=== PATIENT | female | born 1950 | race Caucasian/White ===

== ENCOUNTER 2020-04-24 07:00 | Outpatient (CLI) | payer MEDICARE, SELFPAY ==
[2020-04-24 07:12] LABS: Basophils Absolute Auto 0.02 K/mm3 (0.00-0.10); Basophils Percent Auto 0.2 % (0.0-1.0); Eosinophils Absolute Auto 0.31 K/mm3 (0.02-0.50); Eosinophils Percent Auto 3.8 % (1.0-6.0); Hematocrit 40.2 % (35.0-42.0); Hemoglobin 12.9 g/dL (11.7-13.8); Immature Granulocyte Absolute 0.03 K/mm3 (0.00-0.00); Immature Granulocyte Percent A 0.4 % (0.0-0.0); Lymphocytes Absolute Auto 1.68 K/mm3 (1.10-4.50); Lymphocytes Percent Auto 20.7 % (18.0-42.0); Mean Corpuscular HGB Conc 32.1 g/dL (32.0-36.0); Mean Corpuscular Hemoglobin 33.5 pg (27.0-31.0); Mean Corpuscular Volume 104.4 fL (78.0-102.0); Mean Platelet Volume 10.4 fl (9.2-11.8); Monocytes Absolute Auto 0.58 K/mm3 (0.10-0.90); Monocytes Percent Auto 7.2 % (2.0-11.0); Neutrophils Absolute Auto 5.5 K/mm3 (1.7-7.2); Neutrophils Percent Auto 67.7 % (50.0-70.0); Platelet Count Result 222 K/mm3 (150-420); Red Blood Count 3.85 M/mm3 (4.20-5.40); Red Cell Distribution Width 13.2 % (11.6-14.4); White Blood Count 8.1 K/mm3 (4.8-10.8)
[2020-04-24 07:49] LABS: Alanine Aminotransferase 36 U/L (14-59); Albumin Level 3.5 g/dL (3.4-5.0); Alkaline Phosphatase 78 U/L (46-116); Anion Gap 9 mmol/L (8-16); Aspartate Amino Transferase 21 U/L (15-37); Bilirubin,Total 0.4 mg/dL (0.00-1.00); Blood Urea Nitrogen 26 mg/dL (7-18); Calcium 9.3 mg/dL (8.5-10.1); Carbon Dioxide 26 mmol/L (21-32); Chloride 105 mmol/L (98-108); Cholesterol 233 mg/dL (0-200); Estimated Glomerular Filt Rate 46; Glucose 154 mg/dL (70-99); HDL Direct 46 mg/dL (40-60); LDL Cholesterol Calculated 150 mg/dL (<130); Osmolality Calculated 297 mOsm/kg (285-295); Potassium 4.7 mmol/L (3.5-5.1); Sodium 140 mmol/L (136-145); Total Protein 7.1 g/dL (6.4-8.2); Triglycerides 187 mg/dL (0-150)
[2020-04-27 15:37] LABS: Hemoglobin A1C 7.1 % (<5.7)
== END 2020-04-24 07:01 | disposition home or self-care (01) ==
LOC: CHSLAB 07:03
PROVIDERS: PCP Nurse Practitioner Family; Visit Provider Nurse Practitioner Family
DX: I10 Essential (primary) hypertension (principal); R73.09 Other abnormal glucose
CPT/HCPCS: 36415; 80053; 80061; 83036; 85025

== ENCOUNTER 2020-05-15 08:52 | Outpatient (CLI) | payer MEDICARE, SELFPAY ==
[2020-05-15 09:15] LABS: Creatinine Urine 125.73 mg/dL (40-278); MALB Creatinine Ratio 10.8 mg/g (0-30); Microalbumin Urine Random 13.7 mg/L
[2020-05-15 09:43] LABS: Hemoglobin A1C 6.9 % (<5.7)
[2020-05-15 13:26] LABS: Alanine Aminotransferase 49 U/L (14-59); Albumin Level 3.7 g/dL (3.4-5.0); Alkaline Phosphatase 76 U/L (46-116); Anion Gap 10 mmol/L (8-16); Aspartate Amino Transferase 24 U/L (15-37); Bilirubin,Total 0.4 mg/dL (0.00-1.00); Blood Urea Nitrogen 24 mg/dL (7-18); Calcium 9.4 mg/dL (8.5-10.1); Carbon Dioxide 26 mmol/L (21-32); Chloride 102 mmol/L (98-108); Estimated Glomerular Filt Rate 44; Glucose 95 mg/dL (70-99); Osmolality Calculated 290 mOsm/kg (285-295); Potassium 4.3 mmol/L (3.5-5.1); Sodium 138 mmol/L (136-145); Total Protein 7.1 g/dL (6.4-8.2)
== END 2020-05-15 08:53 | disposition home or self-care (01) ==
LOC: CHSLAB 08:55
PROVIDERS: PCP Nurse Practitioner Family; Visit Provider Nurse Practitioner Family
DX: N28.9 Disorder of kidney and ureter, unspecified (principal); E11.9 Type 2 diabetes mellitus without complications
CPT/HCPCS: 36415; 80053; 82043; 83036

== ENCOUNTER 2021-04-23 07:45 | Outpatient (CLI) | payer MEDICARE, SELFPAY ==
[2021-04-23 08:35] LABS: Creatinine Urine 148.48 mg/dL (40-278); MALB Creatinine Ratio 8.7 mg/g (0-30); Microalbumin Urine Random < 13.0 mg/L
[2021-04-23 08:44] LABS: Hemoglobin A1C 6.1 % (<5.7)
== END 2021-04-23 07:46 | disposition home or self-care (01) ==
LOC: CHSLAB 07:48
PROVIDERS: PCP Nurse Practitioner Family; Visit Provider Nurse Practitioner Family
DX: E11.9 Type 2 diabetes mellitus without complications (principal)
CPT/HCPCS: 36415; 82043; 83036

== ENCOUNTER 2022-06-08 09:54 | Outpatient (CLI) | payer MEDICARE, SELFPAY ==
[2022-06-08 10:09] LABS: Basophils Absolute Auto 0.04 K/mm3 (0.00-0.10); Basophils Percent Auto 0.6 % (0.0-1.0); Eosinophils Absolute Auto 0.26 K/mm3 (0.02-0.50); Eosinophils Percent Auto 3.7 % (1.0-6.0); Hematocrit 37.5 % (35.0-42.0); Hemoglobin 12.2 g/dL (11.7-13.8); Immature Granulocyte Absolute 0.02 K/mm3 (0.00-0.00); Immature Granulocyte Percent A 0.3 % (0.0-0.0); Lymphocytes Absolute Auto 1.54 K/mm3 (1.10-4.50); Lymphocytes Percent Auto 22.1 % (18.0-42.0); Mean Corpuscular HGB Conc 32.5 g/dL (32.0-36.0); Mean Corpuscular Hemoglobin 33.7 pg (27.0-31.0); Mean Corpuscular Volume 103.6 fL (78.0-102.0); Mean Platelet Volume 10.9 fl (9.2-11.8); Monocytes Absolute Auto 0.39 K/mm3 (0.10-0.90); Monocytes Percent Auto 5.6 % (2.0-11.0); Neutrophils Absolute Auto 4.7 K/mm3 (1.7-7.2); Neutrophils Percent Auto 67.7 % (50.0-70.0); Platelet Count Result 229 K/mm3 (150-420); Red Blood Count 3.62 M/mm3 (4.20-5.40); Red Cell Distribution Width 13.4 % (11.6-14.4)
[2022-06-08 10:27] LABS: Alanine Aminotransferase 21 U/L (14-59); Albumin Level 3.4 g/dL (3.4-5.0); Alkaline Phosphatase 69 U/L (46-116); Anion Gap 5 mmol/L (8-16); Aspartate Amino Transferase 12 U/L (15-37); Bilirubin,Total 0.5 mg/dL (0.00-1.00); Blood Urea Nitrogen 20 mg/dL (7-18); Calcium 8.6 mg/dL (8.5-10.1); Carbon Dioxide 32 mmol/L (21-32); Chloride 104 mmol/L (98-108); Cholesterol 136 mg/dL (0-200); Estimated Glomerular Filt Rate 49; Glucose 103 mg/dL (70-99); HDL Direct 55 mg/dL (40-60); LDL Cholesterol Calculated 60 mg/dL (<130); Osmolality Calculated 294 mOsm/kg (285-295); Potassium 3.7 mmol/L (3.5-5.1); Sodium 141 mmol/L (136-145); Total Protein 7.2 g/dL (6.4-8.2); Triglycerides 105 mg/dL (0-150)
[2022-06-08 10:30] LABS: Hemoglobin A1C 6.1 % (<5.7)
== END 2022-06-08 09:55 | disposition home or self-care (01) ==
PROVIDERS: PCP Nurse Practitioner Family; Visit Provider Nurse Practitioner Family
DX: E11.9 Type 2 diabetes mellitus without complications (principal); I10 Essential (primary) hypertension
CPT/HCPCS: 36415; 80053; 80061; 83036; 85025

== ENCOUNTER 2022-08-23 10:54 | Outpatient (CLI) | payer MEDICARE, SELFPAY | END 2022-08-23 10:55 | disposition home or self-care (01) | LOC: CHSLAB 10:58 | PROVIDERS: PCP Nurse Practitioner Family; Visit Provider Specialist | DX: L82.1 Other seborrheic keratosis (principal) | CPT/HCPCS: 88305 ==

== ENCOUNTER 2023-04-12 08:48 | Outpatient (CLI) | payer MEDICARE, SELFPAY ==
--- NOTE | ~2023-04-12 | MM_ITS ---
EXAMINATION: MM screening merari BI w payton HISTORY: Screening mammogram TECHNIQUE: Craniocaudal and mediolateral oblique 3-D tomosynthesis images were obtained and synthetic 2-D images were generated. CAD analysis was submitted and interpreted. COMPARISON: Baseline examination. No prior mammogram is available for comparison at this institution. BREAST PARENCHYMAL COMPOSITION: The breasts are almost entirely fatty. FINDINGS: There is no evidence of suspicious mass, calcification, or architectural distortion to sugg est malignancy in either breast. There has been no suspicious interval change. IMPRESSION: 1. No mammographic evidence of malignancy. 2. Recommend routine screening mammography in one year. BI-RADS Category 1: Negative Reviewed, dictated and finalized at location A.
== END 2023-04-12 08:49 | disposition home or self-care (01) ==
LOC: CHSIMG 08:51
PROVIDERS: PCP Nurse Practitioner Family; Visit Provider Nurse Practitioner Family
DX: Z12.31 Encounter for screening mammogram for malignant neoplasm of breast (principal)
CPT/HCPCS: 77063; 77067

== ENCOUNTER 2023-05-02 10:47 | Outpatient (CLI) | payer MEDICARE, SELFPAY ==
--- NOTE | ~2023-05-02 | DEXA_ITS ---
Bone Density Report Name: MARYANA CONTRERAS Age: 73 Sex: Female Ethnicity: White Date of : 1950 Indication: postmenopausal; screening for osteoporosis; height loss; Referring Provider: QUINTIN BATISTA Study: Bone densitometry was performed. Exam Date: May 02, 2023 Accession number: [id number] Bone Density: Region BMD T-score Z-score Classification AP Spine(L1, L2, L3) 1.214 1.8 4.0 Normal Femoral Neck (Left) 0.672 -1.6 0.3 Osteopenia Total Hip (Left) 0.875 -0.6 1.1 Normal Femoral Neck (Right) 0.694 -1.4 0.5 Osteopenia Total Hip (Right) 0.874 -0.6 1.1 Normal Femoral Neck Mean 0.683 -1.5 0.4 Osteopenia Total Hip Mean 0.874 -0.6 1.1 Normal World Health Organization criteria for BMD impression classify patients as: Normal (T-score at or above -1.0), Osteopenia (T-score between -1.0 and -2.5), or Osteoporosis (T-score at or below -2.5). 10-year Fracture Risk(1): Major Osteoporotic Fracture 9.1% Hip Fracture 1.4% Reported Risk Factors: [place] (), Neck BMD=0.672, BMI=42.6 (1) FRAX(R) Version 3.08. Fracture probability calculated for an untreated patient. Fracture probability may be lower if the patient has received treatment. Clinical Information Provided by Patient: Patient maximum height was 65 Menopause Age: 51 No regular weight bearing exercise Drinks caffeinated beverages Onset of menses at age 12 Number of children 1 Impression: The patient has low bone mass, based on the Left Femoral Neck T-score. Discussion: BONE DENSITY IS LOW AT ONE OR MORE SKELETAL SITES. This patient's lowest T-score is low at one or more skeletal sites. It meets the World Health Organization's (WHO) criteria for ?low bone mass? (T-score between -1.0 and -2.5). The patient's 10-year risk of fracture as calculated by FRAX is less than the threshold where pharmacological therapy is recommended by the National Osteoporosis Foundation (NOF). However, all treatment decisions require clinical judgment and consideration of individual patient factors, including patient preferences, comorbidities, previous drug use, risk factors not captured in the FRAX model (e.g., frailty, falls, vitamin D deficiency, increased bone turnover, interval significant decline in bone density) and possible under or overestimation of fracture risk by FRAX. The patient should follow a healthful lifestyle (good nutrition with adequate calcium and vitamin D, and appropriate weight-bearing exercise). Follow-Up: Consider repeating this study in 2 to 3 years to reassess this patient's status, or sooner if there is some new clinical indication. Reported by: Dr. Maulik Adan on 05/02/2023 11:27:00 AM. Reviewed, dictated and finalized at location A.
== END 2023-05-02 10:48 | disposition home or self-care (01) ==
LOC: CHSIMG 10:48
PROVIDERS: PCP Nurse Practitioner Family; Visit Provider Nurse Practitioner Family
DX: Z78.0 Asymptomatic menopausal state (principal); M85.89 Other specified disorders of bone density and structure, multiple sites
CPT/HCPCS: 77080

== ENCOUNTER 2024-06-24 07:38 | Outpatient (CLI) | payer MEDICARE, SELFPAY ==
[2024-06-24 07:52] LABS: Basophils Absolute Auto 0.04 K/mm3 (0.00-0.10); Basophils Percent Auto 0.6 % (0.0-1.0); Eosinophils Percent Auto 2.8 % (1.0-6.0); Hematocrit 39.3 % (35.0-42.0); Hemoglobin 12.9 g/dL (11.7-13.8); Immature Granulocyte Absolute 0.02 K/mm3 (0.00-0.00); Immature Granulocyte Percent A 0.3 % (0.0-0.0); Lymphocytes Absolute Auto 1.67 K/mm3 (1.10-4.50); Lymphocytes Percent Auto 23.7 % (18.0-42.0); Mean Corpuscular HGB Conc 32.8 g/dL (32-36); Mean Corpuscular Hemoglobin 33.7 pg (27.0-31.0); Mean Corpuscular Volume 102.6 fL (78.0-102.0); Mean Platelet Volume 9.7 fl (9.2-11.8); Monocytes Absolute Auto 0.43 K/mm3 (0.10-0.90); Monocytes Percent Auto 6.1 % (2.0-11.0); Neutrophils Percent Auto 66.5 % (50.0-70.0); Platelet Count Result 231 K/mm3 (150-420); Red Blood Count 3.83 M/mm3 (4.20-5.40); Red Cell Distribution Width 13.5 % (11.6-14.4); White Blood Count 7.1 K/mm3 (4.8-10.8)
[2024-06-24 08:07] LABS: Creatinine Urine 247.08 mg/dL (40-278); MALB Creatinine Ratio 5.2 mg/g (0-30); Microalbumin Urine Random < 13.0 mg/L
[2024-06-24 08:12] LABS: Hemoglobin A1C 6.6 % (<5.7)
[2024-06-24 08:39] LABS: Alanine Aminotransferase 36 U/L (14-59); Albumin Level 3.6 g/dL (3.4-5.0); Alkaline Phosphatase 74 U/L (46-116); Anion Gap 12 mmol/L (4-12); Aspartate Amino Transferase 15 U/L (15-37); Bilirubin,Total 0.5 mg/dL (0.00-1.00); Blood Urea Nitrogen 25 mg/dL (7-18); Calcium 9.7 mg/dL (8.5-10.1); Carbon Dioxide 26 mmol/L (21-32); Chloride 101 mmol/L (98-108); Cholesterol 179 mg/dL (0-200); Estimated Glomerular Filt Rate 48; Glucose 131 mg/dL (70-99); HDL Direct 61 mg/dL (40-60); LDL Cholesterol Calculated 81 mg/dL (<130); Osmolality Calculated 294 mOsm/kg (285-295); Potassium 4.3 mmol/L (3.5-5.1); Sodium 139 mmol/L (136-145); Triglycerides 183 mg/dL (0-150)
[2024-06-24 08:41] LABS: Thyroid Stimulating Hormone Reflex 6.02 u/IU/mL (0.36-3.74)
[2024-06-24 08:42] LABS: Free T4 Free Thyroxine Reflex 0.72 ng/dL (0.76-1.46)
[2024-06-25 10:12] LABS: Folic Acid 7.1 ng/mL (8.6->20); Iron 60 ug/dL (50-170); Percent Iron Saturation 20 % (12-57); Vitamin B12 196 pg/mL (193-986)
== END 2024-06-24 07:39 | disposition home or self-care (01) ==
LOC: CHSLAB 07:40
PROVIDERS: PCP Family Medicine; Visit Provider Nurse Practitioner Family
DX: I10 Essential (primary) hypertension (principal); N28.9 Disorder of kidney and ureter, unspecified; E11.9 Type 2 diabetes mellitus without complications; R71.8 Other abnormality of red blood cells
CPT/HCPCS: 36415; 80053; 80061; 82043; 82607; 82746; 83036; 83540; 83550; 84439; 84443; 85025

== ENCOUNTER 2025-03-07 08:12 | Outpatient (CLI) | payer MEDICARE, SELFPAY ==
--- OUTSIDE RECORDS SUMMARY | 2025-03-07 08:16 | XMS_ITS | Continuity of Care Document ---
Author Organization [facility] Address [address]z [address] [place] [id number] Phone Care Team Providers Care Recycling Worker Name Role Phone Gisselle Dorsey OD Unavailable Unavailable Allergies, Adverse Reactions, Alerts Substance Reaction Status Criticality No Known Allergies Active No Inform ation Medications Medication Instructions Dosage Effective Dates (start - stop) Status Comments allopurinol 100 mg tablet take 1 tablet by oral route 3 times every day 100 MG - Active metformin 500 mg tablet take 2 tablet by oral route every day with morning and evening meals 1000 MG - Active atorvastatin 10 mg tablet take 1 tablet by oral route every day 10 MG - Active triamterene 50 mg capsule take 1 capsule by oral route every day after a meal 50 MG - Active metoprolol tartrate 25 mg tablet take 1 tablet by oral route 2 times every day 25 MG - Active Prilosec 2.5 mg oral suspension,delayed release 1 tablet by mouth once a day - Active Procedures Procedure Date Post-op Follow-up Visit No Charge Refraction After Cataract Laser Surgery No Charge Refraction Fundus Photography W/ Report After Cataract Laser Surgery Office/outpatient Visit, Est No Charge Refraction Post-op Follow-up Visit Post-op Follow-up Visit Remove Cataract, Post Op Care 0 Remove Cataract, Insert Lens,Comanaged D IOLMaster-Professional No Charge Refraction Post-op Follow-up Visit Remove Cataract, Post Op Care 0 Remove Cataract, Insert Lens,Comanaged D IOLMaster-Professional SCODI, Retina No Charge Orbscan No Charge Optomap Fundus Photos 020 No Charge Refraction IOLMaster-Technical Office/outpatient Visit, New Advance Directives Directive Yes / No Effective Date File Name No Information Encounters Encounter Description Practice Location Reason(s) For Visit Diagnoses Date Provider Providers Copied on Encounter [facility], [facility] [address], [place], [place], [id number], [place] tel:[phone] SEC Armand OBRIEN Professional Post-Op (chief complaint) Post op visit 3 Sunita OD Gisselle. [facility], [address], [place], [place], [address], [place]. tel:[phone] Referring Provider: Keke Pop OD, [address], [place], [address]. tel:[phone] [facility], [address], [place], [place], [address], [place] tel:[phone] SEC Armand OBRIEN Professional YAG PC PO/YAG PC (chief complaint) Other secondary cataract, left eye 3 Yinka Valle. [address] [facility], [address], [place], [place], [address], [place]. tel:[phone] Referring Provider: Keke Pop OD, [address] [employer], [place], [address]. tel:[phone] Office/outpa tient Visit, Est [facility], [address], [place], [place], [address], [place] tel:[phone] SEC Armand OBRIEN Professional YAG PC evaluation (chief complaint) Vitreous degeneration, bilateralPres ence of intraocular lensOther secondary cataract, bilateralEpir etinal membrane (ERM) of left eyeOther secondary cataract, right eye 3 Yinka Valle. [address] [facility], [address], [place], [place], [address], [place]. [phone] Referring Provider: Leonard Guy, [address] [facility] [address], [place], [address] . tel:[phone] [facility], [address], [place], [place], [address], [place] [phone] SEC Armand OBRIEN Professional 1 mo CE PO (08/05/20) (chief complaint) Post op visit 1 No Information Referring Provider: Keke Pop OD, [address] [facility], [place], [address]. tel:[phone] [facility], [address], [place], [place], [address], [place] tel:[phone] SEC Armand OBRIEN Professional Post-Op (chief complaint) Post op visit 1 No Information Referring Provider: Keke Pop OD, [address] [facility], [place], [address]. tel:[phone] [facility], [address], [place], [place], [address], [place] tel:[phone] SEC Armand OBRIEN Professional 1 day po PCIOL OD (08/05/20) (chief complaint) Post op visit 0 No Information Referring Provider: Keke Pop OD, [address] [facility], [place], [address]. tel:[phone] [facility], [address], [place], [place], [address], tel:0 [facility] No Information 0 0 Yinka Valle. [address] [facility], [address], [place], [place], [address], . tel:[phone] Referring Provider: Keke Pop OD, [address] [facility], [place], [address]. tel:[phone] [facility], [address] [place] [address] [address], [place], [place], [address], tel:[phone] SEC Armand OBRIEN Professional No Information 0 Yinka Valle. [address] [facility], [place], [address], . tel: Referring Provider: Keke Pop OD, [address] [facility], [place], [address]. tel:[phone] [facility], [address], [place], [place], [address], tel: [phone] Armand OBRIEN Professional 2 wk po PCIOL OS (07/13/20) (chief complaint) Post op visit 0 No Information Referring Provider: Keke Pop OD, [address] [facility], [place], [address]. tel:[phone] [facility], [address] [place] [address] [address], [place], [place], [address], tel:[phone] SEC Armand OBRIEN Professional Post-Op (chief complaint) Post op visit Jul-0 0 Julieta Ybarra. [address] [place] [address] [address], [address], [place], [place], [address], . tel:[phone] Referring Provider: Keke Pop OD, [address] [facility], [place], [address]. tel:[phone] [facility], [address] [place] [address] [address], [place], [place], [address], [place] tel:[phone] [facility] No Information Dec-0 0 Yinka Valle. [address] [facility], [address], [place], [place], [address], [place]. tel:[phone] Referring Provider: Keke Pop OD, [address] [facility], [place], [address]. tel:[phone] [facility], [address] [place] [address] [address], [place], [place], [address], [place] tel:[phone] SEC Armand OBRIEN Professional No Information Dec-0 0 Yinka Valle. [address], [facility] [place], [address], [place]. tel:[phone] Referring Provider: Keke Pop OD, [address] [facility], [place], [address]. tel:[phone] Office/outpa tient Visit, [facility], [address] [place] [address] [address], [place], [place], [address], [place] tel:[phone] SEC Armand OBRIEN Professional PATIENT SERVICES COORDINATOR Cataract OU (chief complaint) Age-related nuclear cataract, right eyeCombined forms of age-related cataract, left eyePunctate keratitis, bilateralVitr eous degeneration, bilateralLatt ice degeneration of both retinasOptic cupping of left eyeEpiretinal membrane (ERM) of left eye Oct-2 0 Yinka Valle. [address] [facility], [address], [place], [place], [address], [place]. tel:[phone] Referring Provider: Keke Pop OD, [address] [facility], [place], [address]. tel:[phone] [facility], [address] [place] [address] [address], [place], [place], [address], [place] tel:[phone] SEC Christofer Dill No Information 0 Yinka Valle. [address] [facility], [address], [place], [place], [address], [place]. tel:[phone] Referring Provider: Keke Pop OD, [address] [place], [address]. tel:[phone] Family History Family Member Type Diagnosis Age At Onset Problem Family history of Diabetes m cristian Payers Payer name Insurance type Covered libertarian ID Authoriza tion(s) No Information Social History Type Description Quantity Date Captured Comments Alcohol Use Details Caffeine Use Details Tobacco Use Status Current non-smoker Smoking Status Never smoker Non-Smoking Tobacco Use Details : No Details Available : No Details Available Sex Female Sexual Orientation Choose not to disclose Gender Identity Choose not to disclose Chief Complaint And Reason For Visit From encounter dated '11/09/2022 10:15'. Post-Op (chief complaint). Description: The 72 year old patient presents for a 2 week post op YAG PC OS. Patient states vision OS is much better. Reason For Referral Reason For Referral No Information Plan Of Treatment Date Type Action Status Patient Education Learning About YAG Lase r Capsulotomy completed Patient Education Cataract Surgery: What to Expect at H~ completed History Of Present Illness Encounter Date Complaint History Of Prese nt Illness Post-Op The 72 year old patient presents for a 2 week post op YAG PC OS. Patient states vision OS is much better. YAG PC PO/YAG PC The 72 year old patient presents for evaluation of YAG PC PO in the right eye and YAG PC in the left eye. Pt reports she can see a lot better since YAG PC, she did get a couple floaters following procedure but they are gone now, and she denies any flashes of light, OD. Pt reports she would like to proceed with YAG PC, OS, because she has trouble reading street signs while driving, trouble reading small print up close and is bothered by glare from bright lights at night, x several mos. YAG PC evaluation The 72 year ol d patient presents for evaluation of YAG PC evaluation in the right eye and left eye. Pt is NIDDM II x 2.5 yrs, followed by PCP, pt reports she doesn't check BS and A1C was a little less than 6 a couple mos ago. Pt reports she has trouble reading small print up close even with gls on, has trouble reading street signs while driving, and is bothered by glare from lights at night, OU, x several mos. 1 mo CE PO (08/05/20) The 70 yea r old female presents for evaluation of 1 mo CE PO (08/05/20) in the right eye. Pt reports she is using Pred BID OD, was using Ketorolac BID OD but ran out yesterday. Pt reports OD is doing good and she is seeing a lot better since CE. Pt was referred by Dr. Pop. Post-Op The 70 year old female presents for a 1 week post op CE OD. Patient is pseudo ou. Patient is using Pred, Vigamox and Ketorolac qid OD. Patient states ou is doing good. 1 day po PCIOL OD (08/05/20) The 70 year old female presents for evaluation of 1 day po PCIOL OD (08/05/20) in the right eye. Pt reports good comfort and vision OD. Pt was assigned Pred, Ket, and Vig QID OD. Post op instructions reviewed and understood by the pt. 2 wk po PCIOL OS (07/13/20) The [age] year old female presents for evaluation of 2 wk po PCIOL OS (07/13/20) in the left eye. Pt reports good comfort and vision OS. Pt reports taking Pred, Vig, and Ket QID OS. Pt reports trouble with small work at near such as threading a needle and trouble with balance and depth perception after CE OS. Pt would like to have CE OD done. Post-Op The 70 year old female presents for a 1 day post op CE OS. Patient is using Pred, Vigamox and Ketorolac qid OS. Patient denies any pain or discomfort. PATIENT SERVICES COORDINATOR Cataract OU The 70 year old female presents for evaluation of PATIENT SERVICES COORDINATOR Cataract OU in the right eye and left eye. Pt referred by Dr. Pop. Hx Cataract OU, DM2 (DM x 6 weeks). Last A1c below 7.0, BS unknown, PCPs name is Christina and works at the [employer]. Pt does not know her last name. Pt reports trouble driving at night. Pt reports trouble seeing street signs reading small print at near such as newspapers, books and medicine bottles x 1 year OU. Functional Status Date Functional Assessmen t No Information Instructions Date Instruction Additional Infor mation Impression/Plan Impression/Plan Impression/Plan Impression/Plan Impression/Plan Impression/Plan Impression/Plan Impression/Plan Impression/Plan Assessments Type Assessment Date assessment Post op visit Patient Care Teams Name Effective Dates (start - stop) Status Members No Information
[2025-03-07 08:33] LABS: Hematocrit 38.6 % (35.0-42.0); Hemoglobin 12.5 g/dL (11.7-13.8); Immature Granulocyte Percent A 0.3 % (0.0-0.0); Lymphocytes Absolute Auto 1.23 K/mm3 (1.10-4.50); Mean Corpuscular HGB Conc 32.4 g/dL (32-36); Mean Corpuscular Hemoglobin 33.9 pg (27.0-31.0); Mean Corpuscular Volume 104.6 fL (78.0-102.0); Nucleated Red Blood Cells Absolute Auto 0.00 K/mm3 (0.00-0.00); Nucleated Red Blood Cells Perc 0.0 % (0-0.0); Platelet Count Result 241 K/mm3 (150-420); Red Blood Count 3.69 M/mm3 (4.20-5.40); White Blood Count 6.0 K/mm3 (4.8-10.8)
[2025-03-07 08:49] LABS: MALB Creatinine Ratio 10.0 mg/g (0-30)
[2025-03-07 09:19] LABS: Alanine Aminotransferase 31 U/L (6-35); Albumin Level 4.3 g/dL (3.5-5.1); Alkaline Phosphatase 67 U/L (38-126); Anion Gap 5 mmol/L (4-12); Aspartate Amino Transferase 35 U/L (14-36); Bilirubin,Total 0.5 mg/dL (0.2-1.3); Blood Urea Nitrogen 26 mg/dL (7-17); Calcium 9.2 mg/dL (8.4-10.2); Carbon Dioxide 26 mmol/L (22-30); Chloride 107 mmol/L (98-107); Cholesterol 174 mg/dL (0-200); Estimated Glomerular Filt Rate 59; Glucose 126 mg/dL (65-110); HDL Direct 56 mg/dL; Osmolality Calculated 292 mOsm/kg (285-295); Potassium 4.6 mmol/L (3.4-5.0); Sodium 138 mmol/L (137-145); Total Protein 7.1 g/dL (6.3-8.2); Triglycerides 238 mg/dL (<150); Uric Acid 4.8 mg/dL (2.5-7.5)
[2025-03-07 09:28] LABS: Hemoglobin A1C 6.6 % (<5.7)
[2025-03-07 09:48] LABS: Thyroid Stimulating Hormone Reflex 4.240 uIU/mL (0.465-4.68)
[2025-03-07 11:52] LABS: Free T4 Free Thyroxine Reflex 0.88 ng/dL (0.78-2.19)
== END 2025-03-07 08:13 | disposition home or self-care (01) ==
LOC: CHSLAB 08:13
PROVIDERS: PCP Nurse Practitioner Family; Visit Provider Nurse Practitioner Family
DX: I10 Essential (primary) hypertension (principal); E78.5 Hyperlipidemia, unspecified; E11.9 Type 2 diabetes mellitus without complications; M10.9 Gout, unspecified
CPT/HCPCS: 36415; 80053; 80061; 82043; 83036; 84439; 84443; 84550; 85025

== ENCOUNTER 2025-06-24 09:34 | Outpatient (CLI) | payer MEDICARE, SELFPAY ==
[2025-06-24 10:07] LABS: Hemoglobin A1C 6.8 % (<5.7)
[2025-06-24 10:11] LABS: Alanine Aminotransferase 42 U/L (6-35); Albumin Level 4.7 g/dL (3.5-5.1); Alkaline Phosphatase 64 U/L (38-126); Anion Gap 14 mmol/L (4-12); Aspartate Amino Transferase 39 U/L (14-36); Bilirubin,Total 0.7 mg/dL (0.2-1.3); Blood Urea Nitrogen 27 mg/dL (7-17); Calcium 10.2 mg/dL (8.4-10.2); Carbon Dioxide 26 mmol/L (22-30); Chloride 101 mmol/L (98-107); Estimated Glomerular Filt Rate 51; Glucose 122 mg/dL (65-110); Osmolality Calculated 298 mOsm/kg (285-295); Potassium 4.8 mmol/L (3.4-5.0); Sodium 141 mmol/L (137-145); Total Protein 7.5 g/dL (6.3-8.2); Uric Acid 7.1 mg/dL (2.5-7.5)
[2025-06-25 10:21] LABS: Hepatitis B Surface Antigen Negative (Negative)
[2025-06-25 10:27] LABS: HAV RESULT Negative (Negative); Hepatitis B Core IgM Result Negative (Negative)
== END 2025-06-24 09:35 | disposition home or self-care (01) ==
PROVIDERS: PCP Nurse Practitioner Family; Visit Provider Nurse Practitioner Family
DX: M10.9 Gout, unspecified (principal); E11.9 Type 2 diabetes mellitus without complications; R94.5 Abnormal results of liver function studies
CPT/HCPCS: 36415; 80053; 80074; 83036; 84550